=== PATIENT | female | born 1935 | race Caucasian/White ===

== ENCOUNTER 2016-11-24 12:11 | Outpatient (CLI) | payer MEDICARE, OTHER ==
[~2016-11-24] VITALS: Ht 154.9 cm; Wt 80.3 kg
[~2016-11-24 12:11] MED LIST: ASPI81TA85 PO; CALTCHW5 PO; DULO1CAP3 PO; FENO145T PO; FIBE500T5 PO; FLUT1SPR2; RABE1TAB PO
[2016-11-24] MEDS ORDERED: NS 1,000 ML IV SCH (12:15)
[2016-11-24] MEDS ORDERED: PROPOFOL 200 MG/20 ML VIAL As Ordered ONE (13:32)
[2016-11-24] MEDS ORDERED: LABETALOL HCL 100 MG/20 ML VIAL As Ordered ONE (13:45)
--- NOTE | 2016-11-24 14:02 | ROOR ---
Patient Name: Yoly Lopes Procedure Date: 11/24/2016 1:33 PM Date of : 1935 Age: 81 Room: [facility] Gender: Female Note Status: Finalized Procedure: Total Colonoscopy to Cecum + Bx. To r/o Microscopic Colitis Indications: Clinically significant diarrhea of unexplained origin, Abnormal CT of the GI tract, Change in bowel habits Providers: Lai Damon MD Referring MD: Fernandez Osorio MD Requesting Provider: Medicines: Monitored Anesthesia Care Complications: No immediate complications. Procedure: Pre-Anesthesia Assessment: - The heart rate, respiratory rate, oxygen saturations, blood pressure, adequacy of pulmonary ventilation, and response to care were monitored throughout the procedure. The Colonoscope was introduced through the anus and advanced to the cecum, identified by appendiceal orifice and ileocecal valve. The colonoscopy was performed without difficulty. The patient tolerated the procedure well. The quality of the bowel preparation was good. Findings: The perianal and digital rectal examinations were normal. Non-bleeding internal hemorrhoids were found during retroflexion. The hemorrhoids were small and Grade I (internal hemorrhoids that do not prolapse). Multiple small and large-mouthed diverticula were found in the recto-sigmoid colon, sigmoid colon and descending colon. The exam was otherwise without abnormality on direct and retroflexion views. Biopsies for histology were taken with a cold forceps from the ascending colon and transverse colon for evaluation of microscopic colitis. The exam was otherwise without abnormality on direct and retroflexion views. Impression: - Non-bleeding internal hemorrhoids. - Diverticulosis in the recto-sigmoid colon, in the sigmoid colon and in the descending colon. - The examination was otherwise normal on direct and retroflexion views. - The examination was otherwise normal on direct and retroflexion views. - Biopsies were taken with a cold forceps from the ascending colon and transverse colon for evaluation of microscopic colitis. - The exam was otherwise normal to the cecum. Recommendation: - Patient has a contact number available for emergencies. The signs and symptoms of potential delayed complications were discussed with the patient. Return to normal activities tomorrow. Written discharge instructions were provided to the patient. - Discharge patient to home. - Continue present medications. - Await pathology results. - Telephone GI clinic for pathology results in 1 week. - High fiber diet. - Check Portal Online for Path Results.([email or web address]) - Repeat colonoscopy for symptoms only. - Return to referring physician. - The findings and recommendations were discussed with the patient's family. Lai Damon MD Lai Damon MD 11/24/2016 2:02:23 PM This report has been signed electronically. Number of Addenda: 0 Note Initiated On: 11/24/2016 1:33 PM Estimated Blood Loss: Estimated blood loss: none.
[2016-11-24 14:25] VITALS: BP 156/72
== END 2016-11-24 14:35 | disposition home or self-care (01) ==
LOC: M OPP 12:11
PROVIDERS: ATTEND Internal Medicine Gastroenterology
DX: K64.0 First degree hemorrhoids (principal); K57.30 Diverticulosis of large intestine without perforation or abscess without bleeding; K63.9 Disease of intestine, unspecified; Z86.010 Personal history of colon polyps; D64.9 Anemia, unspecified; K21.9 Gastro-esophageal reflux disease without esophagitis; I10 Essential (primary) hypertension; E78.00 Pure hypercholesterolemia, unspecified; F33.9 Major depressive disorder, recurrent, unspecified; F41.9 Anxiety disorder, unspecified; K29.70 Gastritis, unspecified, without bleeding; Z79.899 Other long term (current) drug therapy; Z79.82 Long term (current) use of aspirin

== ENCOUNTER → 2021-01-31 | Outpatient (CLI) | payer MEDICARE ==
[~2021-01-31] MED LIST changes: -ASPI81TA85 PO; +ASPI81TA86 PO; -DULO1CAP3 PO; +DULO1CAP6 PO; -FENO145T PO; +FENO145T7 PO; +FIBE500T4 PO; -FIBE500T5 PO; -RABE1TAB PO; +RABE1TAB4 PO
--- NOTE | 2021-01-31 13:09 | REP ---
INDICATION: CKD 3B. COMPARISON: None. TECHNIQUE: Real-time sonographic evaluation of the kidneys with Doppler FINDINGS: Multiple ultrasonographic images of the right kidney show the right kidney to measure 13.6 x 5.1 x 6.3 cm. The renal cortical echotexture is unremarkable. Seen arising from the superior pole there is a 6.8 x 6.9 x 7.1 cm sized anechoic appearing structure which exhibits posterior wall enhancement and increased through transmission.. There is good corticomedullary differentiation. There is no hydronephrosis. There are no perinephric fluid collections. Multiple ultrasonographic images of the left kidney show the left kidney to measure 11.3 x 4.3 x 5.1 cm. The renal cortical echotexture is unremarkable. Seen arising from the superior pole region there is a 4 x 3.3 x 4.2 cm sized anechoic structure which exhibits posterior wall enhancement and increased through transmission. In the lower pole there is a 2.3 x 1.6 x 2.2 cm sized anechoic structure also exhibiting posterior wall enhancement and increased through transmission. There is good corticomedullary differentiation. There is no hydronephrosis. There are no perinephric fluid collections. IMPRESSION: Bilateral simple appearing renal cysts, however, there are no priors for comparison. Due to the size of the right renal cyst pre and postcontrast enhanced renal MRI would be in order since an intracystic nodule could be obscured by ultrasound. <Electronically signed by Alan Arellano > 01/31/21 [id number]
== END ==
LOC: M RAD 12:07
PROVIDERS: ATTEND Internal Medicine Nephrology
DX: N18.32 Chronic kidney disease, stage 3b (principal); N28.1 Cyst of kidney, acquired

== ENCOUNTER → 2023-02-17 | Outpatient (CLI) | payer MEDICARE, OTHER | LOC: M RAD 15:38 | PROVIDERS: ATTEND Internal Medicine Nephrology | DX: M79.662 Pain in left lower leg (principal) ==

== ENCOUNTER 2023-03-01 10:51 | Observation (INO) | payer MEDICARE, OTHER ==
[~2023-03-01] VITALS: Ht 157.5 cm; Wt 73.7 kg
[2023-03-01 12:46] LABS: BASO % 0.6 % (0.0-1.0); EOS % 0.2 % (0.0-3.0); HEMATOCRIT 39.4 % (36.0-47.0); HEMOGLOBIN 12.7 g/dl (12.0-15.5); LYMPH # 1.2 10^3/uL (1.5-5.0); LYMPH % 25.1 % (24.0-44.0); MEAN CORPUSCULAR HEMOGLOBIN 30.4 pg (27.0-33.0); MEAN CORPUSCULAR HGB CONC 32.2 g/dl (32.0-36.5); MEAN CORPUSCULAR VOLUME 94.3 fl (80.0-96.0); MONO # 0.7 10^3/uL (0.0-0.8); MONO % 13.3 % (2.0-8.0); NEUTROPHILS # 2.9 10^3/uL (1.5-8.5); NEUTROPHILS % 60.4 % (36.0-66.0); PLATELET COUNT, AUTOMATED 153 10^3/uL (150-450); RED BLOOD COUNT 4.18 10^6/uL (4.00-5.40); WHITE BLOOD COUNT 4.9 10^3/uL (4.0-10.0)
[2023-03-01 12:53] LABS: ERYTHROCYTE SEDIMENTATION RATE 38 mm/hr (0-30)
[2023-03-01 13:00] LABS: INR 1.26; PROTHROMBIN TIME 15.4 SECONDS (12.5-14.5)
[2023-03-01 13:01] LABS: PARTIAL THROMBOPLASTIN TIME 39.2 SECONDS (24.8-34.2)
[2023-03-01 13:15] LABS: CK-MB VALUE MASS 1.4 NG/ML (<3.6)
[2023-03-01 13:16] LABS: C REACTIVE PROTEIN QUANTITATIV 3.3 MG/DL (<1.0)
[2023-03-01 13:17] LABS: ALBUMIN 2.1 G/DL (3.2-5.2); BILIRUBIN,DIRECT 0.3 MG/DL (<0.4); BILIRUBIN,TOTAL 0.6 MG/DL (0.3-1.2); CALCIUM LEVEL 8.3 MG/DL (8.3-10.6); CREATININE FOR GFR 1.26 MG/DL (0.55-1.30); GLOMERULAR FILTRATION RATE 42.7 (>32); MB/CK RELATIVE INDEX 5.6 (< OR =4); POTASSIUM SERUM 4.1 MMOL/L (3.5-5.1); TOTAL PROTEIN 5.6 G/DL (5.7-8.2)
[2023-03-01 13:18] LABS: THYROID STIMULATING HORMONE 19.38 uIU/ML (0.55-4.78)
[2023-03-01 13:19] LABS: FREE T4 1.14 NG/DL (0.89-1.76)
[2023-03-01 13:22] LABS: RSV AMPLIFICATION NEGATIVE (NEGATIVE)
[2023-03-01 15:10] LABS: CK-MB VALUE MASS < 1.0 NG/ML (<3.6)
[2023-03-01 15:13] LABS: CPK CREATINE PHOSPHOKINASE 32 U/L (34-145); MB/CK RELATIVE INDEX 3.12 (< OR =4)
[2023-03-01] MEDS ORDERED: FUROSEMIDE 40MG/4ML VIAL IV ONE (16:35)
[2023-03-01] MEDS ORDERED: MED REC IN PROGRESS XX SCH (17:35)
[2023-03-01] MEDS ORDERED: ACETAMINOPHEN TAB 650MG DOSE (2X325MG) PO PRN (17:40)
[2023-03-01] MEDS ORDERED: DULO1CAP5 PO (18:57)
[2023-03-01 19:01] LABS: MAGNESIUM LEVEL 1.3 MG/DL (1.8-2.4); PHOSPHORUS LEVEL 3.2 MG/DL (2.4-5.1)
[2023-03-01] MEDS ORDERED: OMEP-173 PO (19:01)
[2023-03-01] MEDS ORDERED: LOPE1CAP5 PO (19:01)
[2023-03-01] MEDS ORDERED: FURO40TA2 PO (19:01)
[2023-03-01] MEDS ORDERED: POTA1TAB23 PO (19:01)
[2023-03-01] MEDS ORDERED: ACET-907 PO (19:03)
[2023-03-01] MEDS ORDERED: HOME MED LIST COMPLETE! XX SCH (19:05)
[2023-03-01] MEDS: HEPARIN SOD (PORCINE) 5000UNITS/ML 1ML VIAL/SYRINGE SC SCH (21:00)
[2023-03-01 21:02] LABS: HEPATITIS B SURFACE ANTIBODY NEGATIVE (POSITIVE)
[2023-03-01 22:27] LABS: HEPATITIS C VIRUS ABY INDEX 0.77 INDEX (<0.8)
[2023-03-02 07:05] LABS: ALBUMIN 2.1 G/DL (3.2-5.2); BILIRUBIN,TOTAL 0.6 MG/DL (0.3-1.2); CALCIUM LEVEL 8.7 MG/DL (8.3-10.6); CREATININE FOR GFR 1.29 MG/DL (0.55-1.30); GLOMERULAR FILTRATION RATE 41.5 (>32); MAGNESIUM LEVEL 1.3 MG/DL (1.8-2.4); POTASSIUM SERUM 4.1 MMOL/L (3.5-5.1); TOTAL PROTEIN 5.7 G/DL (5.7-8.2)
[2023-03-02 07:06] LABS: BASO % 0.5 % (0.0-1.0); HEMOGLOBIN 12.7 g/dl (12.0-15.5); LYMPH % 17.1 % (24.0-44.0); MEAN CORPUSCULAR HEMOGLOBIN 30.9 pg (27.0-33.0); MEAN CORPUSCULAR HGB CONC 32.6 g/dl (32.0-36.5); MEAN CORPUSCULAR VOLUME 94.9 fl (80.0-96.0); MONO # 0.7 10^3/uL (0.0-0.8); MONO % 12.2 % (2.0-8.0); NEUTROPHILS # 4.2 10^3/uL (1.5-8.5); NEUTROPHILS % 69.9 % (36.0-66.0); PLATELET COUNT, AUTOMATED 172 10^3/uL (150-450); RED BLOOD COUNT 4.11 10^6/uL (4.00-5.40); WHITE BLOOD COUNT 6.1 10^3/uL (4.0-10.0)
[2023-03-02] MEDS: DULoxetine 30MG CAPSULE (CYMBALTA) PO SCH (08:23)
[2023-03-02] MEDS: LOPERAMIDE 2 MG CAPLET PO SCH (08:23)
[2023-03-02] MEDS: OMEPRAZOLE 20MG CAP PO SCH (08:23)
[2023-03-02] MEDS: HEPARIN SOD (PORCINE) 5000UNITS/ML 1ML VIAL/SYRINGE SC SCH ×2 (08:27→20:43)
[2023-03-02] MEDS: MAG SULF 1GM/100ML (MAG RUN) 1 GM in IV 1 EA IV SCH ×4 (08:28→13:01)
[2023-03-02] MEDS ORDERED: amLODIPine 5 MG TAB PO SCH (09:00)
[2023-03-02 12:35] LABS: ASCITES FL COLOR PALE YELLOW (COLORLESS); SOURCE, BODY FLUID ASCITES
[2023-03-02 12:36] LABS: APPEARANCE, BODY FLUID CLEAR (CLEAR)
[2023-03-02 12:43] LABS: SOURCE, BODY FLUID ALBUMIN ASCITES
[2023-03-02 13:33] LABS: SOURCE, BODY FLUID GLUCOSE ASCITES
[2023-03-02 13:36] LABS: SOURCE, BODY FLUID TOT PROTEIN ASCITES; TOTAL PROTEIN, BODY FLUID < 2.0 G/DL (NOT ESTABLISHED)
[2023-03-02 13:46] VITALS: BP 121/60; TEMP 96.4; O2SAT 98
[2023-03-02 14:56] VITALS: BP 138/61; TEMP 96.7; O2SAT 95
[2023-03-02 15:33] VITALS: BP 138/61; TEMP 96.7; O2SAT 95
[2023-03-02 16:08] VITALS: BP 136/61; TEMP 97.1; O2SAT 98
[2023-03-02 17:29] VITALS: BP 134/63; TEMP 96.5; O2SAT 96
[2023-03-02 19:11] VITALS: BP 133/63; TEMP 97.1; O2SAT 95
[2023-03-03] VITALS: BP 132/61; TEMP 97.1; O2SAT 98
[2023-03-03 04:33] VITALS: BP 135/61; TEMP 97.6; O2SAT 95
[2023-03-03 06:03] LABS: BASO % 0.6 % (0.0-1.0); EOS % 0.3 % (0.0-3.0); HEMATOCRIT 35.4 % (36.0-47.0); HEMOGLOBIN 11.7 g/dl (12.0-15.5); LYMPH % 26.8 % (24.0-44.0); MEAN CORPUSCULAR HEMOGLOBIN 30.8 pg (27.0-33.0); MEAN CORPUSCULAR HGB CONC 33.1 g/dl (32.0-36.5); MEAN CORPUSCULAR VOLUME 93.2 fl (80.0-96.0); MONO # 0.4 10^3/uL (0.0-0.8); MONO % 11.9 % (2.0-8.0); NEUTROPHILS # 2.1 10^3/uL (1.5-8.5); NEUTROPHILS % 60.1 % (36.0-66.0); PLATELET COUNT, AUTOMATED 121 10^3/uL (150-450); WHITE BLOOD COUNT 3.5 10^3/uL (4.0-10.0)
[2023-03-03 06:29] LABS: CREATININE FOR GFR 1.2 MG/DL (0.55-1.30); GLOMERULAR FILTRATION RATE 45.1 (>32); POTASSIUM SERUM 4.2 MMOL/L (3.5-5.1)
[2023-03-03 08:00] VITALS: BP 143/66; TEMP 98; O2SAT 96
[2023-03-03] MEDS: HEPARIN SOD (PORCINE) 5000UNITS/ML 1ML VIAL/SYRINGE SC SCH (08:30)
[2023-03-03] MEDS: LOPERAMIDE 2 MG CAPLET PO SCH (08:31)
[2023-03-03] MEDS: OMEPRAZOLE 20MG CAP PO SCH (08:31)
[2023-03-03] MEDS: DULoxetine 30MG CAPSULE (CYMBALTA) PO SCH (08:31)
[2023-03-03] MEDS ORDERED: SPIRONOLACTONE 25 MG TAB PO SCH (09:00)
[2023-03-03] MEDS ORDERED: FUROSEMIDE 40 MG TAB PO SCH (09:00)
[2023-03-03] MEDS ORDERED: ALDA25TA2 PO ×2 (10:48→12:18)
[2023-03-03 12:00] VITALS: BP 136/61; TEMP 96.4; O2SAT 99
[2023-03-03] MEDS ORDERED: FURO40TA2 PO (12:18)
[2023-03-03 15:35] VITALS: BP 134/68; TEMP 96.4; O2SAT 95
== END 2023-03-03 17:32 | disposition home health service (06) ==
LOC: M ED 10:51 → M ED INP 10:52 → ENRESERV 03-02 12:31 → M PCU 03-02 13:46
PROVIDERS: ADMIT Internal Medicine; ATTEND Internal Medicine
DX: R18.8 Other ascites (principal); R14.0 Abdominal distension (gaseous); K52.9 Noninfective gastroenteritis and colitis, unspecified; R53.1 Weakness; N28.89 Other specified disorders of kidney and ureter; N28.1 Cyst of kidney, acquired; K74.60 Unspecified cirrhosis of liver; R74.8 Abnormal levels of other serum enzymes; F41.9 Anxiety disorder, unspecified; F32.A Depression, unspecified; K21.9 Gastro-esophageal reflux disease without esophagitis; I11.0 Hypertensive heart disease with heart failure; I50.9 Heart failure, unspecified; I48.91 Unspecified atrial fibrillation; E83.42 Hypomagnesemia; I69.311 Memory deficit following cerebral infarction; R15.9 Full incontinence of feces; E88.09 Other disorders of plasma-protein metabolism, not elsewhere classified; F03.90 Unspecified dementia, unspecified severity, without behavioral disturbance, psychotic disturbance, mood disturbance, and anxiety; S90.822A Blister (nonthermal), left foot, initial encounter; S80.821A Blister (nonthermal), right lower leg, initial encounter; S80.822A Blister (nonthermal), left lower leg, initial encounter; X58.XXXA Exposure to other specified factors, initial encounter; Y92.89 Other specified places as the place of occurrence of the external cause; Y93.89 Activity, other specified; Z86.718 Personal history of other venous thrombosis and embolism; Z85.3 Personal history of malignant neoplasm of breast; Z79.899 Other long term (current) drug therapy; Z88.5 Allergy status to narcotic agent; Z88.8 Allergy status to other drugs, medicaments and biological substances; Z82.49 Family history of ischemic heart disease and other diseases of the circulatory system; Z83.3 Family history of diabetes mellitus; Z80.3 Family history of malignant neoplasm of breast
CPT/HCPCS: 36415; 49083; 71045; 76705; 80048; 80053; 80076; 82042; 82550; 82553; 82945; 83516; 83605; 83690; 83735; 83880; 84100; 84157; 84439; 84443; 84484; 85025; 85610; 85652; 85730; 86140; 86235; 86376; 86381; 86704; 86706; 86803; 87040; 87070; 87102; 87116; 87205; 87206; 87340; 87631; 88305; 88313; 89051; 93005; 93041; 93306; 93970; 93975; 94760; 96365; 96366; 96372; 96375; 97116; 97161; 97165; 97535; 99285; G0378; J1940; J3475; P9047

== ENCOUNTER → 2023-04-06 | Outpatient (CLI) | payer MEDICARE, OTHER ==
[~2023-04-06] MED LIST changes: +ACET-907 PO; +ALDA25TA2 PO; +DULO1CAP5 PO; +FURO40TA2 PO; +LOPE1CAP5 PO; +OMEP-173 PO; +POTA1TAB23 PO
[2023-04-06 11:15] VITALS: TEMP 98
[2023-04-06 12:05] VITALS: BP 125/72; O2SAT 98
== END ==
LOC: M IRPRO 10:46
PROVIDERS: ATTEND Registered Nurse
DX: R18.8 Other ascites (principal)

== ENCOUNTER → 2023-04-23 | Outpatient (CLI) | payer MEDICARE, OTHER ==
[2023-04-23 13:24] VITALS: BP 162/77; TEMP 97.8; O2SAT 99
[2023-04-23 13:32] VITALS: BP 148/82; TEMP 97.8; O2SAT 99
== END ==
LOC: M IRPRO 12:28
PROVIDERS: ATTEND Internal Medicine Gastroenterology
DX: R18.8 Other ascites (principal); K74.60 Unspecified cirrhosis of liver
CPT/HCPCS: 49083; 96374; P9047

== ENCOUNTER → 2023-04-29 | Outpatient (CLI) | payer MEDICARE, OTHER ==
[2023-04-29 11:05] VITALS: BP 144/78; O2SAT 97
[2023-04-29 11:12] VITALS: BP 136/69; O2SAT 98
[2023-04-29 11:21] VITALS: BP 138/65; O2SAT 98
[2023-04-29 11:34] VITALS: BP 141/62; TEMP 98.3; O2SAT 98
== END ==
LOC: M IRPRO 10:18
PROVIDERS: ATTEND Internal Medicine Gastroenterology
DX: R18.8 Other ascites (principal); K74.60 Unspecified cirrhosis of liver
CPT/HCPCS: 49083; 96365; P9047

== ENCOUNTER → 2023-05-06 | Outpatient (CLI) | payer MEDICARE, OTHER ==
[2023-05-06 13:15] VITALS: TEMP 97.2
[2023-05-06 14:17] VITALS: BP 133/60; O2SAT 9
[2023-05-06 14:33] VITALS: BP 135/64; O2SAT 99
[2023-05-06 14:46] VITALS: BP 123/58; O2SAT 99
[2023-05-06 14:56] VITALS: BP 117/54; O2SAT 99
== END ==
LOC: M IRPRO 13:04
PROVIDERS: ATTEND Internal Medicine Gastroenterology
DX: R18.8 Other ascites (principal); K74.60 Unspecified cirrhosis of liver
CPT/HCPCS: 49083; 96365; P9047

== ENCOUNTER → 2023-05-13 | Outpatient (CLI) | payer MEDICARE, OTHER ==
[2023-05-13 13:01] LABS: BASO % 0.6 % (0.0-1.0); HEMATOCRIT 37.6 % (36.0-47.0); HEMOGLOBIN 12.4 g/dl (12.0-15.5); LYMPH # 1.4 10^3/uL (1.5-5.0); LYMPH % 19.3 % (24.0-44.0); MEAN CORPUSCULAR HEMOGLOBIN 30.8 pg (27.0-33.0); MEAN CORPUSCULAR VOLUME 93.5 fl (80.0-96.0); MONO # 0.9 10^3/uL (0.0-0.8); MONO % 12.1 % (2.0-8.0); NEUTROPHILS # 4.9 10^3/uL (1.5-8.5); NEUTROPHILS % 67.7 % (36.0-66.0); PLATELET COUNT, AUTOMATED 173 10^3/uL (150-450); RED BLOOD COUNT 4.02 10^6/uL (4.00-5.40); WHITE BLOOD COUNT 7.3 10^3/uL (4.0-10.0)
[2023-05-13 13:15] VITALS: BP 141/65; O2SAT 97
[2023-05-13 13:20] VITALS: BP 146/66; O2SAT 97
[2023-05-13 13:24] VITALS: BP 147/66; O2SAT 97
[2023-05-13 13:30] VITALS: BP 145/72; O2SAT 96
[2023-05-13 13:36] LABS: ALBUMIN 2.7 G/DL (3.2-5.2); BILIRUBIN,TOTAL 0.6 MG/DL (0.3-1.2); CALCIUM LEVEL 9.2 MG/DL (8.3-10.6); CREATININE FOR GFR 1.45 MG/DL (0.55-1.30); GLOMERULAR FILTRATION RATE 36.3 (>32); POTASSIUM SERUM 4.1 MMOL/L (3.5-5.1); THYROID STIMULATING HORMONE 4.706 uIU/ML (0.55-4.78); TOTAL PROTEIN 6.2 G/DL (5.7-8.2)
== END ==
LOC: M IRPRO 12:09
PROVIDERS: ATTEND Internal Medicine Gastroenterology
DX: R18.8 Other ascites (principal); K74.60 Unspecified cirrhosis of liver; E03.9 Hypothyroidism, unspecified
CPT/HCPCS: 49083; 80053; 84436; 84443; 84481; 85025; 96365; P9047

== ENCOUNTER → 2023-05-13 | Outpatient (CLI) | payer MEDICARE, OTHER ==
[2023-05-13 17:59] LABS: THYROID STIMULATING HORMONE 4.787 uIU/ML (0.55-4.78); THYROXINE (T4) 9.8 UG/DL (4.5-10.9)
[2023-05-13 18:26] LABS: FREE T3 2.6 PG/ML (2.3-4.2)
== END ==
LOC: M IRPRO 12:16 → M LAB 12:16
PROVIDERS: ATTEND Registered Nurse
DX: E03.9 Hypothyroidism, unspecified (principal)

== ENCOUNTER → 2023-08-10 | Outpatient (CLI) | payer MEDICARE, OTHER ==
[2023-08-10 13:23] LABS: HEMATOCRIT 37.1 % (36.0-47.0); HEMOGLOBIN 12.3 g/dl (12.0-15.5); MEAN CORPUSCULAR HEMOGLOBIN 31.9 pg (27.0-33.0); MEAN CORPUSCULAR HGB CONC 33.2 g/dl (32.0-36.5); MEAN CORPUSCULAR VOLUME 96.1 fl (80.0-96.0); PLATELET COUNT, AUTOMATED 205 10^3/uL (150-450); RED BLOOD COUNT 3.86 10^6/uL (4.00-5.40); WHITE BLOOD COUNT 6.6 10^3/uL (4.0-10.0)
[2023-08-10 13:30] VITALS: BP 144/78; TEMP 98; O2SAT 97
[2023-08-10 13:36] LABS: INR 1.21; PROTHROMBIN TIME 14.9 SECONDS (12.5-14.5)
[2023-08-10 13:37] VITALS: BP 150/82; TEMP 97.6; O2SAT 98
[2023-08-10 13:45] VITALS: BP 146/66; TEMP 97.5; O2SAT 97
[2023-08-10 13:50] LABS: ALBUMIN 2.7 G/DL (3.2-5.2); BILIRUBIN,TOTAL 0.5 MG/DL (0.3-1.2); CALCIUM LEVEL 9.2 MG/DL (8.3-10.6); CREATININE FOR GFR 1.48 MG/DL (0.55-1.30); GLOMERULAR FILTRATION RATE 35.4 (>32); POTASSIUM SERUM 4.7 MMOL/L (3.5-5.1); TOTAL PROTEIN 6.7 G/DL (5.7-8.2)
[2023-08-10 13:52] VITALS: BP 149/75; TEMP 98; O2SAT 98
[2023-08-10 14:00] VITALS: BP 149/76; O2SAT 98
== END ==
LOC: M IRPRO 12:25
PROVIDERS: ATTEND Internal Medicine Gastroenterology
DX: R18.8 Other ascites (principal); K74.60 Unspecified cirrhosis of liver
CPT/HCPCS: 49083; 80053; 85027; 85610; 96365; P9047

== ENCOUNTER → 2023-09-30 | Outpatient (CLI) | payer MEDICARE, OTHER ==
[2023-09-30 10:22] VITALS: TEMP 96.7
[2023-09-30 11:30] VITALS: BP 139/62; O2SAT 100
[2023-09-30 11:36] VITALS: BP 138/63; O2SAT 100
[2023-09-30 11:43] VITALS: BP 132/61; O2SAT 99
[2023-09-30 11:50] VITALS: BP_SYST 121; BP_SYST 132; BP_DIAS 58; BP_DIAS 61; O2SAT 99
[2023-09-30 11:58] VITALS: BP 116/58; O2SAT 99
== END ==
LOC: M IRPRO 10:15
PROVIDERS: ATTEND Internal Medicine Gastroenterology
DX: R18.8 Other ascites (principal); K74.60 Unspecified cirrhosis of liver
CPT/HCPCS: 49083; 96365; P9047

== ENCOUNTER → 2023-11-03 | Outpatient (CLI) | payer MEDICARE, OTHER ==
[2023-11-03 12:20] VITALS: TEMP 97.7
[2023-11-03 12:46] VITALS: BP 136/85; O2SAT 99
[2023-11-03 12:51] VITALS: BP 134/96; O2SAT 98
[2023-11-03 12:59] VITALS: BP 134/74; O2SAT 98
[2023-11-03 13:09] VITALS: BP 129/60; O2SAT 98
[2023-11-03 13:15] VITALS: BP 132/58; O2SAT 98
== END ==
LOC: M IRPRO 12:10
PROVIDERS: ATTEND Internal Medicine Gastroenterology
DX: R18.8 Other ascites (principal); K74.60 Unspecified cirrhosis of liver
CPT/HCPCS: 49083; 96365; P9047

== ENCOUNTER 2023-12-09 18:37 | Inpatient (IN) | payer MEDICARE, OTHER ==
[~2023-12-09] VITALS: Ht 157.5 cm; Wt 66.2 kg
[2023-12-09] MEDS ORDERED: LEVO25TA5 PO (18:55)
[2023-12-09] MEDS ORDERED: NOXI1TAB PO (18:55)
[2023-12-09] MEDS ORDERED: FURO20TA2 PO (18:55)
[2023-12-09 20:12] LABS: BASO % 0.2 % (0.0-1.0); HEMATOCRIT 38.5 % (36.0-47.0); HEMOGLOBIN 12.8 g/dl (12.0-15.5); LYMPH # 1.1 10^3/uL (1.5-5.0); LYMPH % 17.7 % (24.0-44.0); MEAN CORPUSCULAR HGB CONC 33.2 g/dl (32.0-36.5); MEAN CORPUSCULAR VOLUME 93.2 fl (80.0-96.0); MONO # 0.6 10^3/uL (0.0-0.8); MONO % 9.9 % (2.0-8.0); NEUTROPHILS # 4.4 10^3/uL (1.5-8.5); NEUTROPHILS % 71.9 % (36.0-66.0); PLATELET COUNT, AUTOMATED 190 10^3/uL (150-450); RED BLOOD COUNT 4.13 10^6/uL (4.00-5.40); WHITE BLOOD COUNT 6.1 10^3/uL (4.0-10.0)
[2023-12-09 20:43] LABS: CK-MB VALUE MASS < 1.0 NG/ML (<3.6)
[2023-12-09 20:45] LABS: ALBUMIN 2.2 G/DL (3.2-5.2); ALKALINE PHOSPHATASE 133 U/L (46-116); ALT/SGPT 16 U/L (7.0-40); AST/SGOT 27 U/L (<34); BILIRUBIN,DIRECT 0.2 MG/DL (<0.4); BILIRUBIN,TOTAL 0.5 MG/DL (0.3-1.2); BLOOD UREA NITROGEN 47 MG/DL (9-23); CALCIUM LEVEL 8.9 MG/DL (8.3-10.6); CARBON DIOXIDE LEVEL 31 MMOL/L (20-31); CHLORIDE LEVEL 101 MMOL/L (98-107); CPK CREATINE PHOSPHOKINASE < 15 U/L (34-145); GLOMERULAR FILTRATION RATE 30.1 (>32); GLUCOSE, FASTING 105 MG/DL (74-106); MAGNESIUM LEVEL 1.7 MG/DL (1.8-2.4); POTASSIUM SERUM 4.6 MMOL/L (3.5-5.1); SODIUM LEVEL 133 MMOL/L (136-145); TOTAL PROTEIN 6.2 G/DL (5.7-8.2)
[2023-12-09 20:47] LABS: THYROID STIMULATING HORMONE 3.787 uIU/ML (0.55-4.78)
[2023-12-09] MEDS ORDERED: ACETAMINOPHEN TAB 650MG DOSE (2X325MG) PO PRN (22:55)
[2023-12-09] MEDS ORDERED: SPIR-10 PO (23:07)
[2023-12-09] MEDS ORDERED: HOME MED LIST COMPLETE! XX SCH (23:10)
[2023-12-09] MEDS: cefTRIAXone SOD 1 GM in D5W MINI-BAG PLUS 50 ML IV SCH (23:39)
[2023-12-09] MEDS: NS 500 ML IV SCH (23:39)
[2023-12-09] MEDS: LACTULOSE 20GM/30ML SYRUP UDC PO SCH (23:41)
[2023-12-10] MEDS: rifAXIMin 550 MG TAB (XIFAXAN) PO SCH (00:03)
[2023-12-10 03:00] VITALS: BP 145/80; TEMP 97.7; O2SAT 98
[2023-12-10 06:31] VITALS: BP 144/79; TEMP 97.2; O2SAT 96
[2023-12-10 06:40] LABS: HEMATOCRIT 38.6 % (36.0-47.0); HEMOGLOBIN 12.7 g/dl (12.0-15.5); MEAN CORPUSCULAR HEMOGLOBIN 30.9 pg (27.0-33.0); MEAN CORPUSCULAR HGB CONC 32.9 g/dl (32.0-36.5); MEAN CORPUSCULAR VOLUME 93.9 fl (80.0-96.0); PLATELET COUNT, AUTOMATED 180 10^3/uL (150-450); RED BLOOD COUNT 4.11 10^6/uL (4.00-5.40); WHITE BLOOD COUNT 7.1 10^3/uL (4.0-10.0)
[2023-12-10 06:51] LABS: INR 1.23; PROTHROMBIN TIME 15.1 SECONDS (12.5-14.5)
[2023-12-10 07:03] LABS: ALBUMIN 2.1 G/DL (3.2-5.2); BILIRUBIN,TOTAL 0.3 MG/DL (0.3-1.2); CALCIUM LEVEL 8.6 MG/DL (8.3-10.6); CREATININE FOR GFR 1.58 MG/DL (0.55-1.30); GLOMERULAR FILTRATION RATE 32.8 (>32); MAGNESIUM LEVEL 1.6 MG/DL (1.8-2.4); POTASSIUM SERUM 4.5 MMOL/L (3.5-5.1); TOTAL PROTEIN 5.7 G/DL (5.7-8.2)
[2023-12-10] MEDS ORDERED: cefTRIAXone SOD 1GM VIAL IV SCH (09:00)
[2023-12-10 12:40] LABS: ASCITES FL COLOR PALE YELLOW (COLORLESS); SOURCE, BODY FLUID ASCITES
[2023-12-10 12:41] LABS: APPEARANCE, BODY FLUID HAZY (CLEAR)
[2023-12-10 21:20] VITALS: BP 165/77; TEMP 97.3; O2SAT 98
[2023-12-10 23:20] VITALS: BP 137/74; TEMP 97.5; O2SAT 98
[2023-12-11 04:20] VITALS: BP 133/71; TEMP 97.9; O2SAT 94
[2023-12-11 08:00] VITALS: BP 133/68; TEMP 97.5; O2SAT 98
[2023-12-11 12:00] VITALS: BP 134/72; TEMP 97.7; O2SAT 97
[2023-12-11 13:34] LABS: BASO % 0.6 % (0.0-1.0); HEMATOCRIT 38.4 % (36.0-47.0); HEMOGLOBIN 12.7 g/dl (12.0-15.5); LYMPH # 1.2 10^3/uL (1.5-5.0); MEAN CORPUSCULAR HGB CONC 33.1 g/dl (32.0-36.5); MEAN CORPUSCULAR VOLUME 93.7 fl (80.0-96.0); MONO # 0.6 10^3/uL (0.0-0.8); MONO % 9.5 % (2.0-8.0); NEUTROPHILS # 4.8 10^3/uL (1.5-8.5); NEUTROPHILS % 71.6 % (36.0-66.0); PLATELET COUNT, AUTOMATED 205 10^3/uL (150-450); WHITE BLOOD COUNT 6.7 10^3/uL (4.0-10.0)
[2023-12-11 13:38] LABS: ERYTHROCYTE SEDIMENTATION RATE 36 mm/hr (0-30)
[2023-12-11 13:57] LABS: C REACTIVE PROTEIN QUANTITATIV 4.8 MG/DL (<1.0)
[2023-12-11 13:58] LABS: BILIRUBIN,TOTAL 0.3 MG/DL (0.3-1.2); CALCIUM LEVEL 8.8 MG/DL (8.3-10.6); CREATININE FOR GFR 1.5 MG/DL (0.55-1.30); GLOMERULAR FILTRATION RATE 34.8 (>32); POTASSIUM SERUM 3.9 MMOL/L (3.5-5.1); TOTAL PROTEIN 5.6 G/DL (5.7-8.2)
[2023-12-11 14:05] LABS: PROCALCITONIN 0.21 ng/ml
[2023-12-11] MEDS: DULoxetine 30MG CAPSULE (CYMBALTA) PO SCH (15:56)
[2023-12-11 16:00] VITALS: BP 126/61; TEMP 97.7; O2SAT 100
[2023-12-11 19:57] VITALS: BP 126/74; TEMP 97.7; O2SAT 98
[2023-12-12 00:10] VITALS: BP 130/75; TEMP 97.7; O2SAT 98
[2023-12-12 03:20] VITALS: BP 114/64; TEMP 97.9; O2SAT 97
[2023-12-12] MEDS: LEVOTHYROXINE 25MCG TABLET (0.025MG) PO SCH (05:37)
[2023-12-12 08:00] VITALS: BP 116/65; TEMP 97.5; O2SAT 98
[2023-12-12 12:00] VITALS: BP 121/61; TEMP 98.1; O2SAT 98
[2023-12-12 16:00] VITALS: BP 119/66; TEMP 97.9; O2SAT 95
[2023-12-12] MEDS ORDERED: XIFA550T PO (16:18)
[2023-12-12] MEDS ORDERED: LACT20EL PO (16:18)
[2023-12-12 16:54] LABS: BASO % 0.5 % (0.0-1.0); HEMATOCRIT 36.8 % (36.0-47.0); HEMOGLOBIN 12.1 g/dl (12.0-15.5); LYMPH % 11.7 % (24.0-44.0); MEAN CORPUSCULAR HEMOGLOBIN 30.5 pg (27.0-33.0); MEAN CORPUSCULAR HGB CONC 32.9 g/dl (32.0-36.5); MEAN CORPUSCULAR VOLUME 92.7 fl (80.0-96.0); MONO # 0.9 10^3/uL (0.0-0.8); MONO % 10.6 % (2.0-8.0); NEUTROPHILS # 6.3 10^3/uL (1.5-8.5); NEUTROPHILS % 76.8 % (36.0-66.0); PLATELET COUNT, AUTOMATED 192 10^3/uL (150-450); RED BLOOD COUNT 3.97 10^6/uL (4.00-5.40); WHITE BLOOD COUNT 8.2 10^3/uL (4.0-10.0)
[2023-12-12 17:20] LABS: ALBUMIN 1.8 G/DL (3.2-5.2); BILIRUBIN,TOTAL 0.3 MG/DL (0.3-1.2); CALCIUM LEVEL 8.5 MG/DL (8.3-10.6); CREATININE FOR GFR 1.43 MG/DL (0.55-1.30); GLOMERULAR FILTRATION RATE 36.8 (>32); POTASSIUM SERUM 4.2 MMOL/L (3.5-5.1); TOTAL PROTEIN 5.2 G/DL (5.7-8.2)
[2023-12-12 20:35] VITALS: BP 131/79; TEMP 97.5; O2SAT 91
[2023-12-12] MEDS: LACTULOSE 20GM/30ML SYRUP UDC PO SCH (21:15)
[2023-12-13] VITALS: BP 116/64; TEMP 97.5; O2SAT 96
[2023-12-13 04:20] VITALS: BP 118/70; TEMP 97.5; O2SAT 98
[2023-12-13 06:43] LABS: BASO % 0.4 % (0.0-1.0); HEMATOCRIT 35.3 % (36.0-47.0); HEMOGLOBIN 11.8 g/dl (12.0-15.5); LYMPH # 1.1 10^3/uL (1.5-5.0); LYMPH % 20.2 % (24.0-44.0); MEAN CORPUSCULAR HEMOGLOBIN 30.7 pg (27.0-33.0); MEAN CORPUSCULAR HGB CONC 33.4 g/dl (32.0-36.5); MEAN CORPUSCULAR VOLUME 91.9 fl (80.0-96.0); MONO # 0.6 10^3/uL (0.0-0.8); MONO % 10.5 % (2.0-8.0); NEUTROPHILS # 3.8 10^3/uL (1.5-8.5); NEUTROPHILS % 68.5 % (36.0-66.0); PLATELET COUNT, AUTOMATED 184 10^3/uL (150-450); RED BLOOD COUNT 3.84 10^6/uL (4.00-5.40); WHITE BLOOD COUNT 5.5 10^3/uL (4.0-10.0)
[2023-12-13 07:09] LABS: ALBUMIN 1.7 G/DL (3.2-5.2); BILIRUBIN,TOTAL 0.3 MG/DL (0.3-1.2); CALCIUM LEVEL 8.1 MG/DL (8.3-10.6); CREATININE FOR GFR 1.46 MG/DL (0.55-1.30); GLOMERULAR FILTRATION RATE 35.9 (>32); TOTAL PROTEIN 4.8 G/DL (5.7-8.2)
[2023-12-13 08:00] VITALS: BP 132/56; TEMP 97.3; O2SAT 9; O2SAT 99
[2023-12-13 12:00] VITALS: BP 113/61; TEMP 97.2; O2SAT 98
[2023-12-13 16:00] VITALS: BP 110/53; TEMP 97.5; O2SAT 97
[2023-12-13 20:32] VITALS: BP 130/68; TEMP 97.3; O2SAT 100
[2023-12-14] VITALS: BP 114/62; TEMP 97.3; O2SAT 99
[2023-12-14 04:19] VITALS: BP 130/67; TEMP 97.5; O2SAT 99
[2023-12-14 12:00] VITALS: BP 111/64; TEMP 97.7; O2SAT 99
[2023-12-14 20:00] VITALS: BP 127/71; TEMP 97.7; O2SAT 99
[2023-12-15 04:00] VITALS: BP 121/68; TEMP 97.5; O2SAT 97
[2023-12-15 08:00] VITALS: BP 126/70; TEMP 97.3; O2SAT 99
[2023-12-15 12:00] VITALS: BP_SYST 116; BP_SYST 136; BP_DIAS 64; BP_DIAS 66; TEMP 97.3; TEMP 97.5; O2SAT 100; O2SAT 98
== END 2023-12-15 17:01 | disposition home or self-care (01) | DRG 433 ==
LOC: M ED 18:37 → EDBD 18:37 → M ED INP 22:54 → M MSPAV 12-10 02:58
PROVIDERS: ADMIT Preventive Medicine Undersea and Hyperbaric Medicine; ATTEND Family Medicine
PROC: 0W9G3ZX Drainage of Peritoneal Cavity, Percutaneous Approach, Diagnostic (ICD-10-PCS; principal; 2023-12-10 12:00)
DX: K74.60 Unspecified cirrhosis of liver (principal); R18.8 Other ascites; N17.9 Acute kidney failure, unspecified; E87.1 Hypo-osmolality and hyponatremia; E46 Unspecified protein-calorie malnutrition; N18.30 Chronic kidney disease, stage 3 unspecified; F03.90 Unspecified dementia, unspecified severity, without behavioral disturbance, psychotic disturbance, mood disturbance, and anxiety; H91.93 Unspecified hearing loss, bilateral; E83.42 Hypomagnesemia; K76.82 Hepatic encephalopathy; K72.10 Chronic hepatic failure without coma; Z74.1 Need for assistance with personal care; Z66 Do not resuscitate; Z79.890 Hormone replacement therapy; Z79.899 Other long term (current) drug therapy; Z88.5 Allergy status to narcotic agent; Z88.8 Allergy status to other drugs, medicaments and biological substances

== ENCOUNTER 2023-12-20 13:41 | Inpatient (IN) | payer MEDICARE, OTHER ==
[~2023-12-20 13:41] MED LIST changes: +FURO20TA2 PO; +LACT20EL PO; +LEVO25TA5 PO; +NOXI1TAB PO; +SPIR-10 PO; +XIFA550T PO
[2023-12-20] MEDS ORDERED: SCOPOLAMINE 1MG TRANSDERMAL PATCH TOP PRN (16:00)
[2023-12-20] MEDS ORDERED: HYOSCYAMINE SULFATE 0.125 MG SUBL TABLET PO PRN (16:00)
[2023-12-20] MEDS ORDERED: HOME MED LIST COMPLETE! XX SCH (16:15)
[2023-12-20] MEDS ORDERED: ACETAMINOPHEN 325 MG TAB PO PRN (18:25)
[2023-12-20] MEDS: LACTULOSE 20GM/30ML SYRUP UDC PO SCH (23:36)
[2023-12-20] MEDS: MORPHINE 10MG/0.5ML ORAL CONCENTRATE SOLUTION U/D SL PRN (23:36)
[2023-12-20] MEDS: LORazepam 1 MG TAB PO PRN (23:36)
[2023-12-21] MEDS: DULoxetine 30MG CAPSULE (CYMBALTA) PO SCH (10:50)
[2023-12-21 16:15] VITALS: TEMP 97
[2023-12-21] MEDS ORDERED: ISOVUE-300 61% 100ML VIAL As Ordered ONE (17:46)
[2023-12-21] MEDS ORDERED: LIDOCAINE 1% MDV 20ML VIAL As Ordered ONE (17:46)
[2023-12-21] MEDS ORDERED: MIDAZOLAM INJ 2MG/2ML VIAL As Ordered ONE (17:47)
[2023-12-21] MEDS ORDERED: fentaNYL 100 MCG/2 ML INJECTION As Ordered ONE (17:47)
[2023-12-21] MEDS ORDERED: ceFAZolin 2 GM/D5W 50 ML IV BAG As Ordered ONE (18:06)
[2023-12-21 18:30] VITALS: BP 157/76; O2SAT 94
[2023-12-23] MEDS ORDERED: HYOS125TA PO (11:19)
[2023-12-23] MEDS ORDERED: MORP1SOL5 PO (11:19)
[2023-12-23] MEDS ORDERED: ATIV1TAB10 PO (11:19)
== END 2023-12-23 13:24 | DRG 433 ==
LOC: M ED 13:41 → EDBD 13:41 → EDSEX 13:41 → M ED INP 13:42 → M MSPAV 17:14
PROVIDERS: ADMIT Internal Medicine Nephrology; ATTEND Internal Medicine
PROC: 0JH83XZ Insertion of Tunneled Vascular Access Device into Abdomen Subcutaneous Tissue and Fascia, Percutaneous Approach (ICD-10-PCS; 2023-12-21)
PROC: 0W9G30Z Drainage of Peritoneal Cavity with Drainage Device, Percutaneous Approach (ICD-10-PCS; principal; 2023-12-21 16:00)
DX: K74.60 Unspecified cirrhosis of liver (principal); R18.8 Other ascites; E87.1 Hypo-osmolality and hyponatremia; Z51.5 Encounter for palliative care; F01.50 Vascular dementia, unspecified severity, without behavioral disturbance, psychotic disturbance, mood disturbance, and anxiety; N18.30 Chronic kidney disease, stage 3 unspecified; D64.9 Anemia, unspecified; I12.9 Hypertensive chronic kidney disease with stage 1 through stage 4 chronic kidney disease, or unspecified chronic kidney disease; K72.90 Hepatic failure, unspecified without coma; R62.7 Adult failure to thrive; E78.00 Pure hypercholesterolemia, unspecified; Z86.718 Personal history of other venous thrombosis and embolism; Z96.653 Presence of artificial knee joint, bilateral; Z98.41 Cataract extraction status, right eye; Z98.42 Cataract extraction status, left eye; Z79.890 Hormone replacement therapy; Z86.73 Personal history of transient ischemic attack (TIA), and cerebral infarction without residual deficits; Z79.899 Other long term (current) drug therapy; Z88.5 Allergy status to narcotic agent; Z88.8 Allergy status to other drugs, medicaments and biological substances

== ENCOUNTER → 2024-02-16 | Outpatient (REF) | payer MEDICARE, OTHER ==
[~2024-02-16] MED LIST changes: +ATIV1TAB10 PO; +HYOS125TA PO; +MORP1SOL5 PO
[2024-02-16 13:55] LABS: BASO % 0.7 % (0.0-1.0); HEMATOCRIT 32.7 % (36.0-47.0); HEMOGLOBIN 10.7 g/dl (12.0-15.5); LYMPH # 0.9 10^3/uL (1.5-5.0); LYMPH % 16.4 % (24.0-44.0); MEAN CORPUSCULAR HEMOGLOBIN 30.9 pg (27.0-33.0); MEAN CORPUSCULAR HGB CONC 32.7 g/dl (32.0-36.5); MEAN CORPUSCULAR VOLUME 94.5 fl (80.0-96.0); MONO # 0.8 10^3/uL (0.0-0.8); MONO % 15.1 % (2.0-8.0); NEUTROPHILS # 3.7 10^3/uL (1.5-8.5); NEUTROPHILS % 67.1 % (36.0-66.0); PLATELET COUNT, AUTOMATED 168 10^3/uL (150-450); RED BLOOD COUNT 3.46 10^6/uL (4.00-5.40); WHITE BLOOD COUNT 5.5 10^3/uL (4.0-10.0)
[2024-02-16 14:05] LABS: INR 1.07; PROTHROMBIN TIME 14.2 SECONDS (12.5-14.5)
[2024-02-16 15:07] LABS: ALBUMIN 1.9 G/DL (3.2-5.2); BILIRUBIN,TOTAL 0.3 MG/DL (0.3-1.2); CALCIUM LEVEL 8.7 MG/DL (8.3-10.6); CREATININE FOR GFR 1.22 MG/DL (0.55-1.30); GLOMERULAR FILTRATION RATE 44.2 (>32); POTASSIUM SERUM 6.3 MMOL/L (3.5-5.1); TOTAL PROTEIN 5.3 G/DL (5.7-8.2)
== END ==
LOC: SKLAB2 13:14
PROVIDERS: ATTEND Internal Medicine
DX: K76.82 Hepatic encephalopathy (principal); Z79.01 Long term (current) use of anticoagulants